=== PATIENT | female | born 1945 ===

== ENCOUNTER 2018-03-04 05:46 | Day surgery (SDC) | payer OTHER ==
[~2018-03-04] VITALS: Ht 157.5 cm; Wt 81.6 kg
[2018-03-04] VITALS (9 sets, daily range): BP systolic 143–195; BP diastolic 56–78
[~2018-03-04 05:46] MED LIST: ADALAT20 MG ORAL; BENAZEPRIL HCL40 MG ORAL; CLONIDINE HCL0.3 MG PO; LANTUS SOL100 UNIT/1 SUBQ; PRAVASTATIN SOD80 M1 ORAL
[2018-03-04] MEDS ORDERED: Lidocaine 1% MPF 10mg/ml 5ml ONE (07:02)
[2018-03-04] MEDS ORDERED: Propofol 200mg/20ml IV ONE ×3 (07:02→10:47)
[2018-03-04] MEDS ORDERED: Dexamethasone 4mg/ml vial ONE (07:04)
[2018-03-04] MEDS ORDERED: fentaNYL 100 mcg/2 mL IV ONE (07:09)
[2018-03-04] MEDS ORDERED: Ketamine 500mg Inj ONE ×2 (07:09→10:44)
[2018-03-04] MEDS ORDERED: Midazolam 2mg/2ml Inj ONE (07:09)
[2018-03-04] MEDS ORDERED: EPINEPHrine 1mg/1ml Amp ONE (07:14)
[2018-03-04] MEDS ORDERED: Thrombin 5000 units TOPIC ONE (07:14)
[2018-03-04] MEDS ORDERED: Thrombin 5000 units spray kit TOPIC ONE (07:14)
[2018-03-04] MEDS ORDERED: Bupivacaine 0.5% Inj 30 ml vial INJ ONE (07:15)
[2018-03-04] MEDS ORDERED: Bacitracin 50000 Units Vial ONE (07:15)
[2018-03-04] MEDS ORDERED: Gelfoam Absorbable 1gm powder pkt TOPIC ONE (07:15)
[2018-03-04] MEDS ORDERED: Bupivacaine 0.25% Inj 30ml INJ ONE (07:15)
[2018-03-04] MEDS ORDERED: LR 1000ml ONE (07:30)
[2018-03-04] MEDS ORDERED: Glycopyrrolate 0.2mg/ml 1ml Vial ONE (07:30)
--- NOTE | 2018-03-04 07:35 | Pre-Procedure Note/Attestation ---
Pre-Procedure Note/Attestation Complete Prior to Procedure Planned Procedure: not applicable Procedure Narrative: L3-4-5 TLIF and possible adjacent level decompression Indications for Procedure Pre-Operative Diagnosis: Lumbar disc hernia. Synovial cyst. discogenic pain Attestation I attest that I discussed the nature of the procedure; its benefits; risks and complications; and alternatives (and the risks and benefits of such alternatives ), prior to the procedure, with the patient (or the patient's legal access representative). I attest that, if there was a reasonable possibility of needing a blood transfusion, the patient (or the patient's legal access representative) was given the [facility] standardized written summary, pursuant to the [place] Blood Safety Act ([place] Health and Safety Code # 1645, as amended). I attest that I re-evaluated the patient just prior to the surgery and that there has been no change in the patient's H&P, except as documented below: OMAR CHERRY March 04, 2018 07:34
[2018-03-04] MEDS ORDERED: Sugammadex Sodium 200mg/2ml vial IV ONE (07:37)
[2018-03-04] MEDS ORDERED: Zemuron 50mg/5ml Inj IV ONE (07:37)
--- NOTE | 2018-03-04 09:38 | Brief Operative Note ---
Immediate Post Operative Note Operative Note Chief Complaint: LBP Pre-op Diagnosis: Lumbar disc hernia. Synovial cyst. discogenic pain Procedure: Cancelled Surgery due to fluctuation of heartrate going down to 37 and not responding to medications. Post-op Diagnosis: same as pre-op Surgeon: dean Business Account Manager: Co surgeon Mere Wheeler Anesthesia: general Specimen: none Complications: none Condition: stable Fluids: min Estimated Blood Loss: none Drains: none Implant(s) used?: No OMAR CHERRY March 04, 2018 09:38
--- NOTE | 2018-03-04 10:21 | Anethesia Preoperative Eval ---
Anesthesia Pre-op PMH/ROS General Date of Evaluation: March 04, 2018 Time of Evaluation: 07:15 ASA Score: ASA 3 Mallampati Score Class I : Soft palate, uvula, fauces, pillars visible Class II: Soft palate, uvula, fauces visible Class III: Soft palate, base of uvula visible Class IV: Only hard plate visible Mallampati Classification: Class II Surgeon: toribio Diagnosis: back pain Anesthesia History: PONV Family History: no anesthesia problems Allergies: Coded Allergies: CODEINE (Verified Adverse Reaction, Severe, VOMITING, 03/03/18) Medications: see eMAR Past Medical History Cardiovascular: Reports: HTN; Denies: CAD, IA, valve dz, arrhythmia, other Pulmonary: Denies: asthma, COPD, VÍCTOR, other Gastrointestinal/Genitourinary: Denies: GERD, CRI, ESRD, other Neurologic/Psychiatric: Denies: dementia, CVA, depression/anxiety, TIA, other Endocrine: Reports: DM; Denies: hypothyroidism, steroids, other HEENT: Denies: cataract (L), cataract (R), glaucoma, YSLETA DEL SUR (L), YSLETA DEL SUR (R), other Hematology/Immune: Denies: anemia, DVT, bleeding disorder, other Musculoskeletal/Integumentary: Denies: OA, RA, DJD, DDD, edema, other Other: obesity PSxH Narrative: wrist surgery Anesthesia Pre-op Phys. Exam Physician Exam Last Vital Signs Date Time Temp Pulse Resp B/P (MAP) Pulse Ox O2 Delivery O2 Flow Rate FiO2 03/04/18 06:54 97.6 52 18 143/56 97 Room Air 97.6 Constitutional: NAD Cardiovascular: RRR, other Respiratory: CTA Gastrointestinal: S/NT/ND Airway Exam Mallampati Score: Class II MO: full ROM: full Teeth: other - upper front capped tooth Dentures: upper, lower Anesthesia Pre-op A/P Risk Assessment & Plan Assessment: ASA 3 okay to proceed Plan: ETGA Status Change Before Surgery: Latha Garcia M.D. March 04, 2018 10:21
[2018-03-04] MEDS ORDERED: LR 1000ml 1,000 ML IVLG SCH (10:29)
--- NOTE | 2018-03-04 10:29 | Immediate Post-Op Evaluation ---
Immediate Post-Op Evalulation Immediate Post-Op Evalulation Procedure: cancelled after anesthesia Date of Evaluation: March 04, 2018 Time of Evaluation: 09:47 IV Fluids: LR 500ml Blood Products: 0 Estimated Blood Loss: 0 Urinary Output: 0 Blood Pressure Systolic: 183 Blood Pressure Diastolic: 67 Pulse Rate: 59 Respiratory Rate: 16 O2 Sat by Pulse Oximetry: 96 Temperature (Fahrenheit): 97.3 Pain Score (1-10): 0 Nausea: No Vomiting: No Complications none. patient baseline bradycardia of HR 50 decrease further, 39-45. Surgery cancelled. Patient awaken. VSS. Plan cardiac w/u before rescheduling Patient Status: awake, patent Hydration Status: adequate Drug: none Latha Hsu M.D. March 04, 2018 10:29
[2018-03-04] MEDS ORDERED: DiphenhydrAMINE 50mg/ml Inj IVP PRN (10:30)
--- NOTE | 2018-03-04 10:37 | 48 Hour Post Anesthesia Eval ---
Post Anesthesia Evaluation Procedure: cancelled after anesthesia Date of Evaluation: March 04, 2018 Time of Evaluation: 10:30 Blood Pressure Systolic: 175 0: 72 Pulse Rate: 56 Respiratory Rate: 14 Temperature (Fahrenheit): 97.3 O2 Sat by Pulse Oximetry: 97 Airway: patent Nausea: No Vomiting: No Pain Intensity: 0 Hydration Status: adequate Cardiopulmonary Status: back to baseline bradycardia . HR 56 Mental Status/LOC: patient returned to baseline Follow-up Care/Observations: pt to follow up with Dr. Duran to get referral to hemodialysis rn for w/u before rescheduling surgery Post-Anesthesia Complications: none Follow-up care needed: patient intructions given - pt to follow up with Latha Salgado M.D. March 04, 2018 10:37
[2018-03-04] MEDS ORDERED: Metoclopramide 10mg/2ml Inj IVP SCH (11:30)
[2018-03-04] MEDS ORDERED: Metoclopramide 10mg/2ml Inj ONE (11:30)
== END 2018-03-04 12:30 | disposition home or self-care (01) ==
LOC: UNDOADMIN 05:46 → SDSOVERFLO 05:46 → SDS 05:46 → EDSTATUS 07:30 → SDS 12:30
DX: M51.26 Other intervertebral disc displacement, lumbar region (principal); Z53.8 Procedure and treatment not carried out for other reasons; M71.30 Other bursal cyst, unspecified site; Z88.6 Allergy status to analgesic agent; I10 Essential (primary) hypertension; E11.9 Type 2 diabetes mellitus without complications; E78.5 Hyperlipidemia, unspecified; Z79.4 Long term (current) use of insulin; I45.10 Unspecified right bundle-branch block
CPT/HCPCS: 36415; 82962; 86850; 86900; 86901; 87081; J1100; J2250; J2405; J2704; J2765; J3010; J7120; S0028